=== PATIENT | male | born 1995 | race Caucasian/White ===

== ENCOUNTER 2020-10-11 09:37 | Emergency (ER) | payer SELFPAY ==
[~2020-10-11] VITALS: Ht 172.7 cm; Wt 91.0 kg
[2020-10-11 09:40] VITALS: BP 136/97
[2020-10-11] MEDS ORDERED: CYCL-1 PO (10:01)
== END 2020-10-11 10:16 | disposition home or self-care (01) ==
LOC: ER 09:38
DX: S13.4XXA Sprain of ligaments of cervical spine, initial encounter (principal); M62.838 Other muscle spasm; Z79.899 Other long term (current) drug therapy; Z59.0 Homelessness; V98.8XXA Other specified transport accidents, initial encounter; Y93.89 Activity, other specified; Y92.89 Other specified places as the place of occurrence of the external cause; Y99.8 Other external cause status
CPT/HCPCS: 99283